=== PATIENT | female | born 1980 | race Caucasian/White ===

== ENCOUNTER 2017-04-19 17:58 | Emergency (ER) | payer OTHER ==
[~2017-04-19] VITALS: Ht 159 cm; Wt 50.0 kg
[2017-04-19 18:48] VITALS: BP 110/74; PULSE 87; RESP 18; O2SAT 100
--- NOTE | 2017-04-19 19:43 | ED.REPORT ---
HPI-General Illness Date of Service Apr 19, 2017 ED Provider: Amrit Herron DO Pt is a 37 year old female with a history of kidney stones who presents to the ED complaining of malaise onset 3 weeks ago. She c/o associated anxiety, blurred vision, mild abdominal pain, global weakness, and nausea. Per pt, her anxiety may be secondary to her nausea. She denies vomiting and any other symptoms. Pt reports diarrhea, but states that she just stopped taking amoxicillin. Pt denies current . The pt presented to for her symptoms and she was discharged on zofran. Nursing Notes Stated Complaint: ANXIETY,NAUSEA Chief Complaint: General Complaint Nursing Notes Reviewed: Yes Allergies: Coded Allergies: No Known Allergies (Unverified Allergy, Unknown, 04/19/17) General Time Seen by MD: 19:43 Chief Complaint Other (Malaise) Hx Obtained From: Patient Arrived By: Walk-in Sudden in Onset?: No Onset Occurred: More than a week ago... (3 weeks) Symptom Duration: Since onset Location: : Abdomen Quality: Painful Severity: Current: Mild Severity: Maximum: Mild Recent Healthcare: Recent doctor visit Similar Sx Previous: No Past Medical History Past Medical History Denies: Diabetes mellitus, Hypertension Past Surgical History Cyst Smoking History Never Smoker Social History Alcohol Use: Denies alcohol use Drug Use: Denies drug use Other Social History: Good social support Ambulatory Status Independent Review of Systems Full Review of Systems Constitutional: Reports: Malaise, Weakness - generalized GI: Reports: Abdominal pain, Diarrhea (secondary to medication), Nausea, Denies: Vomiting Psychiatric: Reports: Anxiety Complete sys rev & neg: except as marked. Physical Exam Vital Signs Vital Signs Date Time Temp Pulse Resp B/P Pulse Ox O2 Delivery O2 Flow Rate FiO2 04/20/17 01:12 86 16 99/54 98 Room Air 04/19/17 23:11 68 18 102/71 98 Room Air 04/19/17 18:48 37.1 87 18 110/74 100 Room Air Initial VS: Reviewed Head / Eyes: Atraumatic, Normocephalic Neck: Supple, Full range of motion Respiratory: Breath sounds normal, Clear to auscultation, No respiratory distress Cardiovascular: Regular rate & rhythm, Heart sounds normal, Intact distal pulses Abdomen / GI: Soft, Non-tender Extremities: Vascular intact, Neuro intact Skin: Warm, Dry, No cyanosis Neurologic: Alert, Oriented, Nonfocal Psychiatric: Mood/affect normal, Behavior normal General/Constitutional: Awake, Alert Behavior: Positive: Anxious Interpretation & Diagnostics Lab Results Interpretation Result Diagram: 04/19/17213104/19/172209 Test 04/19/17 21:32 04/19/17 22:10 04/20/17 01:12 White Blood Count 10.8th/mm3 (3.8-10.1) Red Blood Count 4.51mil/mm3 (3.90-5.20) Hemoglobin 13.4g/dL (12.0-15.6) Hematocrit 39.0% (35.0-46.0) Mean Corpuscular Volume 86.5fL (81-100) Mean Corpuscular Hemoglobin 29.7pg (27.0-35.0) Mean Corpuscular Hemoglobin Concent 34.4% (32.0-37.0) Red Cell Distribution Width 14.0% (12.3-15.4) Platelet Count 274bil/L (150-400) Neutrophils (%) (Auto) 74.7% (40-74) Lymphocytes (%) (Auto) 16.5% (14-46) Monocytes (%) (Auto) 8.4% (4-12) Eosinophils (%) (Auto) 0.1% (0-5) Basophils (%) (Auto) 0.2% (0-3) Sodium Level 138mEq/L (134-144) Potassium Level 2.9mEq/L (3.5-5.2) Chloride Level 103mEq/L (97-108) Carbon Dioxide Level 19mmol/L (18-29) Blood Urea Nitrogen 8mg/dL (6-20) Creatinine 0.49mg/dL (0.57-1.00) Estimat Glomerular Filtration Rate 204mL/min (>59) Glucose Level 89mg/dL (60-99) Calcium Level 7.8mg/dL (8.5-10.1) Total Bilirubin 0.4mg/dL (0.0-1.2) Aspartate Amino Transf (AST/SGOT) 13U/L (0-50) Alanine Aminotransferase (ALT/SGPT) 12U/L (0-32) Alkaline Phosphatase 36U/L (25-150) Total Protein 6.3g/dL (6.4-8.4) Albumin 3.6g/dL (3.4-5.0) Thyroid Stimulating Hormone (TSH) 0.335uIU/mL (0.450-4.500) Human Chorionic Gonadotropin, Qual 0.500 (Negative) Urine Color Yellow (YELLOW) Urine Appearance Clear (CLEAR,HAZY) Urine pH 6.5 (5.0-8.0) Urine Specific [place] 1.006 (1.003-1.035) Urine Protein Negativemg/dL (NEG,TRACE) Urine Glucose (UA) Negativemg/dL (NEGATIVE) Urine Ketones 15mg/dL (NEGATIVE) Urine Occult Blood Trace (NEGATIVE) Urine Nitrite Negative (NEGATIVE) Urine Bilirubin Negative (NEGATIVE) Urine Urobilinogen Normalmg/dL (NORMAL) Urine Leukocyte Esterase Negative (NEGATIVE) Urine RBC 0-2/hpf (0-2) Urine WBC 0-5/hpf (0-5) Urine Epithelial Cells Few/hpf (NONE-MOD) Urine Crystals None seen (NONE SEEN) Urine Bacteria Few/hpf (NONE-FEW) Urine Hyaline Casts None/lpf (NONE) Urine Granular Casts None seen (NONE SEEN) Urine Waxy Casts None seen (NONE SEEN) Urine Red Blood Cell Casts None seen (NONE SEEN) Urine White Blood Cell Casts None seen (NONE SEEN) Urine Mucus None seen (None Seen) Urine Trichomonas None seen (NONE SEEN) Urine Yeast None (NONE SEEN) Urine Culture Reflexed Not indicated Lab Results Interpretation: WBC - 10.8, high Neut % - 74.7, high Potassium - 2.9, low Creatinine - 0.49, low Calcium - 7.8, low Total protein - 6.3, low TSH - 0.335, low Re-Eval/Medical Decision Med Decision/Clinical Course This is a delightful highly anxious 37-year-old female has been suffering with rather profound anxiety symptoms. Someone pulled her on an SSRI recently. This is not afforded her any relief however she probably is not a time to get good drug levels. She received some fluids, nausea medicine and then an anxiolytic IV. She felt much better. She was able to get some rest. Laboratory work is reassuring. I think that her SSRIs going to be good choice for her however in the next few days I will prescribe clonazepam to be taken twice daily as directed for anxiety routine benzodiazepine warnings were given. Close outpatient follow-up recommended. Source of Hx: Old records Time of Eval: 20:53 Re-Evaluation/Progress Note: Informed pt of plan for treatment for her nausea, followed by plan to treat anxiety with Clonazepam. All questions addressed. Time of Eval: 00:26 Re-Evaluation/Progress Note: Pt rechecked. She is feeling better. Informed pt of plan to prescribe Clonazepam for anxeity. Informed pt of reassureing labs. Informed pt of plan for discharge. Pt understands and agrees with plan for discharge. F/U instructions and RTER warnings given. All questions addressed. Counseled Regarding: Diagnosis, Lab results, Need for follow-up, When/why to return to ED Discharge & Departure Primary Impression: Anxiety Additional Impression: Nausea Disposition: Home Discharge Condition All VS Reviewed: Yes Condition: Stable Patient Instructions: Acute Nausea and Vomiting (ED), Anxiety (ED) Additional Instructions: Take Clonazepam 2x daily as directed for anxiety. Do not drive while taking Clonazepam as it is a sedating medication. Use it sparingly as it can be habit forming. Continue taking your current medication. Call your primary care provider on Saturday for a follow up appointment next week. Return to the Emergency Department for any new or concerning symptoms. Referrals: Haylee James MD (PCP) Scribe Attestation Portions of this note were transcribed by Dana Hniojosa. I, Dr. Herron personally performed the history, physical exam and medical decision-making; I reviewed and confirmed the accuracy of the information in the transcribed note. Signed by : Kiran Mireles, 04/19/17. copies to: Haylee James MD, Todd P DO Apr 19, 2017 19:43 Dana Joaquin Apr 19, 2017 20:38
[2017-04-19] MEDS ORDERED: 0.9% Sodium Chloride 1,000 ML IV ONE (20:55)
[2017-04-19] MEDS ORDERED: Promethazine Inj 12.5 MG in Dextrose 5%-Pha MIX 50 ML IV ONE (20:55)
[2017-04-19 21:41] LABS: BASOPHILS % (AUTO) 0.2 % (0-3); EOSINOPHILS % (AUTO) 0.1 % (0-5); MONOCYTES % (AUTO) 8.4 % (4-12); Mean Corpuscular Hemoglobin 29.7 pg (27.0-35.0); Mean Corpuscular Volume 86.5 fL (81-100); NEUTROPHILS % (AUTO) 74.7 % (40-74); Platelet Count 274 bil/L (150-400)
[2017-04-19 23:11] VITALS: BP 102/71; PULSE 68; RESP 18; O2SAT 98
[2017-04-19] MEDS ORDERED: MetoCLOpramide 5 mg/mL 2 mL Inj IVPUSH ONE (23:35)
[2017-04-20 01:12] VITALS: BP 99/54; PULSE 86; RESP 16; O2SAT 98
[2017-04-20 01:18] LABS: COLOR,URINE YELLOW (YELLOW)
[2017-04-20 01:19] LABS: APPEARANCE,URINE CLEAR (CLEAR,HAZY); OCCULT BLOOD,URINE TRACE (NEGATIVE); PH,URINE 6.5 (5.0-8.0); UROBILINOGEN,URINE NORMAL (NORMAL)
== END 2017-04-20 01:13 | disposition home or self-care (01) ==
LOC: SED 17:58
DX: F41.9 Anxiety disorder, unspecified (principal); R11.0 Nausea
CPT/HCPCS: 36415; 80053; 81000; 84443; 84703; 85025; 96361; 96374; 96375; 99284; J1200; J1885; J2060; J2550; J2765; J7030